=== PATIENT | male | born 1945 | race Caucasian/White ===

== ENCOUNTER 2018-08-29 17:56 | Emergency (ER) | payer MEDICARE, OTHER ==
[2018-08-29 18:21] VITALS: RESP 20
[2018-08-29] MEDS ORDERED: APAP/OXYCODONE 1 EACH TABLET PO PRN (18:59)
[2018-08-29] MEDS ORDERED: APAP/HYDROCODONE 1 EACH TABLET ONE (19:06)
[2018-08-29 19:39] VITALS: BP 93/63; PULSE 82; TEMP 97.8; O2SAT 93
== END 2018-08-29 19:30 | disposition home or self-care (01) | DRG 605 ==
LOC: ED 17:56
DX: S20.212A Contusion of left front wall of thorax, initial encounter (principal); W01.0XXA Fall on same level from slipping, tripping and stumbling without subsequent striking against object, initial encounter; R40.2362 Coma scale, best motor response, obeys commands, at arrival to emergency department; R40.2142 Coma scale, eyes open, spontaneous, at arrival to emergency department; R40.2252 Coma scale, best verbal response, oriented, at arrival to emergency department; E11.9 Type 2 diabetes mellitus without complications
CPT/HCPCS: 71045; 93005; 99283; A9270-GY